=== PATIENT | female | born 2005 | race Caucasian/White ===

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

== ENCOUNTER 2023-06-09 22:24 | Emergency (ER) | payer OTHER ==
[~2023-06-09] VITALS: Ht 154.9 cm; Wt 61.0 kg
[~2023-06-09 22:24] MED LIST changes: +GABAPENTIN300 MG PO
[2023-06-09 23:12] VITALS: BP 125/68
== END 2023-06-09 23:13 | disposition home or self-care (01) ==
LOC: ED 22:24
PROVIDERS: Family Medicine
DX: T14.90XA Injury, unspecified, initial encounter (principal); W46.0XXA Contact with hypodermic needle, initial encounter; Z77.21 Contact with and (suspected) exposure to potentially hazardous body fluids; F17.200 Nicotine dependence, unspecified, uncomplicated; Z88.8 Allergy status to other drugs, medicaments and biological substances
CPT/HCPCS: 84460; 86706; 86803

== ENCOUNTER 2024-04-28 12:53 | Emergency (ER) | payer OTHER ==
[~2024-04-28] VITALS: Ht 154.9 cm; Wt 59.5 kg
[~2024-04-28 12:53] MED LIST changes: +CYCLOBENZAPRINE10 MG PO
[2024-04-28 14:12] VITALS: BP 104/67
[2024-04-30 07:23] LABS: HEPATITIS B SURFACE ANTIBODY 3.14 IU/L (())
[2024-04-30 08:34] LABS: HEPATITIS C AB CIA INTERP Negative (Negative); HEPATITIS C ANTIBODY CIA INDEX <0.02 IV (())
[2024-04-30 09:06] LABS: HIV 1,2 COMBO ANTIGEN/ANTIBODY Negative (Negative)
== END 2024-04-28 14:12 | disposition home or self-care (01) ==
LOC: ED 12:53
PROVIDERS: Emergency Medicine
DX: S61.230A Puncture wound without foreign body of right index finger without damage to nail, initial encounter (principal); W46.0XXA Contact with hypodermic needle, initial encounter; F17.200 Nicotine dependence, unspecified, uncomplicated; Z88.1 Allergy status to other antibiotic agents
CPT/HCPCS: 36415; 84460; 86706; 86803; 99283